=== PATIENT | female | born 1970 | race Caucasian/White ===

== ENCOUNTER 2018-12-01 07:09 | Day surgery (SDC) | payer BC ==
[2018-11-29 10:11] VITALS: BMI 24.5
[2018-12-01] MEDS ORDERED: Propofol 10 mg/ml Inj (20 ML) ONE (08:55)
[2018-12-01] MEDS ORDERED: Midazolam 2 MG/2 ML VIAL ONE ×2 (08:55→09:48)
[2018-12-01] MEDS ORDERED: HYDROmorphone 0.5 mg/0.5 ml ISec IVP PRN (09:08)
[2018-12-01] MEDS: ceFOXitin IV 1 gm/100 ml in NS 1 GM/100 ML BAG ONE (09:35)
[2018-12-01 12:06] VITALS: BP 124/72; PULSE 57; RESP 15; TEMP 97.8; O2SAT 99
--- NOTE | 2018-12-02 08:48 | OP ---
PROCEDURE DATE: 12/01/2018 PREOPERATIVE DIAGNOSIS: A 48-year-old 2, para 2, with endocervical polyp, menometrorrhagia, rule out endometrial polyp. POSTOPERATIVE DIAGNOSIS: A 48-year-old 2, para 2, with endocervical polyp, menometrorrhagia, rule out endometrial polyp. SURGEON: Justin Moran MD [employer]CHIT[employer]OD [employer]DEL [employer]KER: None. ANESTHESIA: General. ANESTHESIOLOGIST: Bhargav Salazar DO PROCEDURES: MyoSure, cervical polypectomy, dilatation and curettage, cystoscopy. ESTIMATED BLOOD LOSS: 20 mL. DEFICIT: 200 mL. DESCRIPTION OF PROCEDURE: After informed consent was obtained, the patient was brought to the operating room, placed on the table where general anesthesia was given. Once the anesthesia was given, the patient was prepped and draped in a normal sterile fashion. . Endometrial pictures were taken. Then, the decision was to use a MyoSure. using the MyoSure, the polyp on the cervix was taken out and sent to Pathology. After that, sharp curettage of the endometrium was done and was sent to Pathology. ECC was done and it was sent to Pathology. After that, the tenaculum was taken out. The patient tolerated the procedure well. All lap, sponge, and instrument counts were correct x2 at the end of the case. Justin Moran MD
== END 2018-12-01 12:05 | disposition home or self-care (01) ==
LOC: C.SDS 07:09 → EDBD 08:15 → C.SDS 12:05
PROVIDERS: ATTEND Obstetrics & Gynecology
DX: N84.1 Polyp of cervix uteri (principal); N71.1 Chronic inflammatory disease of uterus; N93.8 Other specified abnormal uterine and vaginal bleeding; N92.1 Excessive and frequent menstruation with irregular cycle
CPT/HCPCS: 58558; 88305; J1885; J2001; J2250; J2405; J2704; J3010